=== PATIENT | male | born 1985 | race Hispanic/Latino ===

== ENCOUNTER 2023-04-25 12:57 | Emergency (ER) | payer SELFPAY ==
[2023-04-25] MEDS ORDERED: Acetaminophen 500 MG TAB ONE (13:39)
[2023-04-25] MEDS ORDERED: Sodium Chloride 0.9% 1,000 ML ONE (13:39)
[2023-04-25] MEDS ORDERED: Ondansetron PF 4 MG/2 ML Vial ONE (13:39)
[2023-04-25 13:46] LABS: #Basophils 0.1 thou/uL (0.0-0.2); #Eosinphils 0.2 thou/uL (0.0-0.7); #Lymphocytes 2.9 thou/uL (1.20-3.40); #Monocytes 0.3 thou/uL (0.11-0.59); #Neutrophils 3.1 thou/uL (1.40-6.50); %Basophils 1.7 % (0.0-1.0); %Eosinophils 2.6 % (0.0-10.0); %Monocytes 4.6 % (0.0-10.0); %Neutrophils 47.2 % (42.0-75.0); Hematocrit 46.5 % (42.0-52.0); Hemoglobin 15.6 g/dL (14.0-18.0); Mean Corpuscular HGB CONC 33.6 g/dL (32.0-36.0); Mean Corpuscular Hemoglobin 31.6 pg (27.0-31.0); Mean Platelet Volume 9.5 fL (7.4-10.4); Platelet Count 239 10x3/uL (130-400); RBC Distribution Width 11.7 % (11.5-14.5); Red Blood Cell (RBC) Count 4.94 mill/uL (4.70-6.10); White Blood Cell (WBC) Count 6.5 10x3/uL (4.8-10.8)
[2023-04-25 13:57] LABS: Prothrombin Time 13.9 sec (12.0-14.7)
[2023-04-25 13:58] LABS: PTT 28.5 sec (22.9-36.1)
[2023-04-25 13:59] LABS: ALT (SGPT) 105 U/L (8-55); AST (SGOT) 47 U/L (5-34); Albumin 4.8 g/dL (3.5-5.0); Alkaline Phosphatase 66 U/L (40-110); Anion Gap 15 mmol/L (10-20); BUN (Urea Nitrogen) 12 mg/dL (8.9-20.6); Calc. Creatinine Clearance 0 mL/min (70-130); Calcium 9.6 mg/dL (7.8-10.44); Carbon Dioxide 24 mmol/L (22-29); Chloride 105 mmol/L (98-107); Estimated GFR 117; Glucose 98 mg/dL (70-105); Potassium 3.5 mmol/L (3.5-5.1); Protein, Total 7.8 g/dL (6.0-8.3); Sodium 140 mmol/L (136-145)
== END 2023-04-25 14:21 | disposition home or self-care (01) ==
LOC: NAV ERS 12:57
DX: R04.0 Epistaxis (principal)
CPT/HCPCS: 80053; 85025; 85610; 85730; 96374; J2405; J7050